=== PATIENT | male | born 1955 | race Caucasian/White ===

== ENCOUNTER → 2016-08-16 | Outpatient (CLI) | payer MEDICARE, MEDICAID | END | disposition home or self-care (01) | LOC: PCVCCLINIC 12:18 | PROVIDERS: ATTEND Internal Medicine | DX: I25.10 Atherosclerotic heart disease of native coronary artery without angina pectoris (principal); I48.0 Paroxysmal atrial fibrillation; E78.00 Pure hypercholesterolemia, unspecified; I65.23 Occlusion and stenosis of bilateral carotid arteries; E11.9 Type 2 diabetes mellitus without complications; G47.30 Sleep apnea, unspecified; I11.0 Hypertensive heart disease with heart failure; I50.9 Heart failure, unspecified; K21.9 Gastro-esophageal reflux disease without esophagitis; Z79.4 Long term (current) use of insulin; Z95.1 Presence of aortocoronary bypass graft; Z87.891 Personal history of nicotine dependence; Z88.0 Allergy status to penicillin; Z91.013 Allergy to seafood | CPT/HCPCS: 36415; 80061; 93005; G0463 ==

== ENCOUNTER → 2017-01-28 | Outpatient (CLI) | payer MEDICARE, MEDICAID | END | disposition home or self-care (01) | LOC: PCVCCLINIC 13:35 | PROVIDERS: ATTEND Internal Medicine | DX: I25.10 Atherosclerotic heart disease of native coronary artery without angina pectoris (principal); I25.5 Ischemic cardiomyopathy; I65.23 Occlusion and stenosis of bilateral carotid arteries; I10 Essential (primary) hypertension; E11.9 Type 2 diabetes mellitus without complications; E78.5 Hyperlipidemia, unspecified; G47.33 Obstructive sleep apnea (adult) (pediatric); I63.9 Cerebral infarction, unspecified; Z87.891 Personal history of nicotine dependence; Z79.899 Other long term (current) drug therapy; Z79.84 Long term (current) use of oral hypoglycemic drugs | CPT/HCPCS: 80061; 93005; G0463 ==

== ENCOUNTER → 2017-08-07 | Outpatient (CLI) | payer MEDICARE, MEDICAID | END | disposition home or self-care (01) | LOC: PCVCIMAG 08:43 | DX: I65.23 Occlusion and stenosis of bilateral carotid arteries (principal); I25.10 Atherosclerotic heart disease of native coronary artery without angina pectoris; I25.5 Ischemic cardiomyopathy; E78.5 Hyperlipidemia, unspecified; I10 Essential (primary) hypertension; G47.33 Obstructive sleep apnea (adult) (pediatric); I63.9 Cerebral infarction, unspecified; E11.9 Type 2 diabetes mellitus without complications; Z87.891 Personal history of nicotine dependence; Z79.899 Other long term (current) drug therapy; Z79.84 Long term (current) use of oral hypoglycemic drugs; Z79.4 Long term (current) use of insulin | CPT/HCPCS: 80061; 93005; 93880; G0463 ==

== ENCOUNTER → 2018-02-13 | Outpatient (CLI) | payer MEDICARE, MEDICAID | END | disposition home or self-care (01) | LOC: PCVCCLINIC 10:34 | PROVIDERS: ATTEND Internal Medicine | DX: I25.10 Atherosclerotic heart disease of native coronary artery without angina pectoris (principal); I25.5 Ischemic cardiomyopathy; E78.5 Hyperlipidemia, unspecified; I65.23 Occlusion and stenosis of bilateral carotid arteries; G47.33 Obstructive sleep apnea (adult) (pediatric); I63.9 Cerebral infarction, unspecified; E11.9 Type 2 diabetes mellitus without complications; I11.0 Hypertensive heart disease with heart failure; I50.9 Heart failure, unspecified; K21.9 Gastro-esophageal reflux disease without esophagitis; Z79.84 Long term (current) use of oral hypoglycemic drugs | CPT/HCPCS: 36415; 80061; 93005; G0463 ==

== ENCOUNTER → 2018-02-13 | Outpatient (CLI) | payer MEDICARE, MEDICAID | END | disposition home or self-care (01) | LOC: PCVCCLINIC 10:52 | PROVIDERS: ATTEND Internal Medicine | DX: I25.10 Atherosclerotic heart disease of native coronary artery without angina pectoris (principal); I25.5 Ischemic cardiomyopathy; E78.5 Hyperlipidemia, unspecified; I65.23 Occlusion and stenosis of bilateral carotid arteries; G47.33 Obstructive sleep apnea (adult) (pediatric); I63.9 Cerebral infarction, unspecified; E11.9 Type 2 diabetes mellitus without complications; I11.0 Hypertensive heart disease with heart failure; I50.9 Heart failure, unspecified; K21.9 Gastro-esophageal reflux disease without esophagitis; Z79.84 Long term (current) use of oral hypoglycemic drugs | CPT/HCPCS: 36415; 80061; 93005; G0463 ==

== ENCOUNTER → 2018-08-22 | Outpatient (CLI) | payer MEDICARE, MEDICAID ==
--- NOTE | 2018-08-22 09:52 | PCVCIMAG ---
APPROVED REPORT Indications Stenosis Risk Factors Hypertension: TIA/CVA History Hyperlipidemia Diabetes, CAD Doppler Spectral Velocity Analysis PSV / EDVPSV / EDV ECA (R) 270 / 31 cm/sECA (L) 146 / 22 cm/s dICA (R) 76 / 24 cm/sdICA (L) 84 / 14 cm/s Jimbo (R) 72 / 25 cm/smICA (L) 76 / 23 cm/s pICA (R) 102 / 27 cm/spICA (L) 73 / 19 cm/s Bulb (R) 96 / 23 cm/sBulb (L) 69 / 14 cm/s dCCA (R) 90 / 26 cm/sdCCA (L) 90 / 19 cm/s mCCA (R) 87 / 22 cm/smCCA (L) 94 / 24 cm/s Vert (R) 27 / 7 cm/sVert (L) 36 / 12 cm/s ICA/CCA 1.13ICA/CCA 0.93 Basic Measurements Blood Pressure: Pulses: Right Left RightLeft Brachial(Sitting) 130/38rrEb635/68mmHgTemporal Real Time B-Mode Imaging Vert. (R)AntegradeVert. (L)Antegrade Findings The right carotid bulb has moderate plaque. The right proximal internal carotid artery shows <40% stenosis. The right common carotid artery shows no significant stenosis. The right external carotid artery shows no significant stenosis. The left carotid bulb has moderate plaque. The left proximal internal carotid artery shows <40% stenosis. The left common carotid artery shows no significant stenosis. The left external carotid artery shows no significant stenosis. Conclusion 1. Right internal carotid artery stenosis (<40%) 2. Left internal carotid artery stenosis (<40%) 3. Antegrade vertebral flow
--- NOTE | 2018-08-22 09:59 | PCVCIMAG ---
APPROVED REPORT Study performed: 08/22/2018 08:34:16 EXAM: Comprehensive 2D, Doppler, and color-flow Echocardiogram Patient Location: Echo lab Status: routine BSA: 2.51 HR: 60 bpmBP: 140/68 mmHg Rhythm: NSR Other Information Study Quality: Adequate Risk Factors: Cardiac Risk Factors: HTN, DM Indications CAD ischemic cardiomyopathy, obesity 2D Dimensions IVSd: 10.85 (7-11mm)LVOT Diam: 22.17 (18-24mm) LVDd: 58.56 mm PWd: 10.72 (7-11mm) LVDs: 50.53 (25-40mm) Left Atrium: 52.64 (27-40mm) Aortic Root: 29.84 mm LV Single Plane 4CH: 47.33 % LV Single Plane 2CH: 49.22 % Biplane EF: 48.9 % Volumes Left Atrial Volume (Systole) Single Plane 4CH: 105.20 mLSingle Plane 2CH: 97.23 mL LA ESV Index: 41.00 mL/m2 Aortic Valve AoV Peak David.: 2.57 m/s AO Peak Gr.: 26.50 mmHgLVOT Max P.62 mmHg AO Mean Gr.: 13.40 mmHgLVOT Mean P.68 mmHg AO V2 Mean: 1.73 m/sLVOT Max V: 1.13 m/s AO V2 VTI: 59.96 cmLVOT Mean V: 0.76 m/s MATTHEW (VTI): 1.78 [id number] V1 VTI: 27.73 cm MATTHEW Vmax: 1.69 cm2 SV (LVOT): 106.97 mL Mitral Valve E/A Ratio: 1.6 MV Decel. Time: 269.57 ms MV E Max David.: 0.80 m/s MV A David.: 0.51 m/s IVRT: 83.04 ms Pulmonary Valve PV Peak David.: 1.25 m/sPV Peak Gr.: 6.25 mmHg Pulmonary Vein P Vein S: 0.31 m/sP Vein A: 0.27 m/s P Vein D: 0.49 m/sP Vein A Dur.: 141.9 msec P Vein S/D Ratio: 0.63 Tricuspid Valve TR Peak David.: 2.62 m/s TR Peak Gr.: 27.45 mmHg TV Vmax: 0.45 m/s Left Ventricle Left ventricle is borderline dilated. Basal-mid inferolater and basal inferior hypokinesis. There is normal left ventricular wall thickness. Left ventricular systolic function is mild to moderately decreased. Hypokinesis involving the base of the inferolateral and inferior morales. LVEF 45-50%. Grade II - pseudonormal filling dynamics. Right Ventricle The right ventricle is normal size. The right ventricular systolic function is normal. Atria The left atrium size is normal. The right atrium size is normal. Aortic Valve The aortic valve is mildly calcified, possibly bicuspid. No aortic regurgitation is present. There is mild valvular aortic stenosis. Calculated aortic valve area is 1.8 cm2 with maximum pressure gradient of 27 mmHg and mean pressure gradient of 13 mmHg. Mitral Valve The mitral valve is normal in structure. There is no mitral valve regurgitation noted. No evidence of mitral valve stenosis. Tricuspid Valve The tricuspid valve is normal in structure. Mild tricuspid regurgitation with PAP of 34 mmHg. Pulmonic Valve The pulmonary valve is normal in structure. There is no pulmonic valvular regurgitation. Great Vessels The aortic root is normal in size. IVC is normal in size and collapses >50% with inspiration. Pericardium There is no pericardial effusion. There is no pleural effusion. <Conclusion> Left ventricular systolic function is mild to moderately decreased. Hypokinesis involving the base of the inferolateral and inferior morales. LVEF 45-50%. Grade II - pseudonormal filling dynamics. The aortic valve is mildly calcified, possibly bicuspid. Mild stenosis, no insufficiency Calculated aortic valve area is 1.8 cm2 with maximum pressure gradient of 27 mmHg and mean pressure gradient of 13 mmHg. The mitral valve is normal in structure. No mitral valve regurgitation. Mild tricuspid regurgitation with pulmonary artery pressure of 34 mmHg. There is no pericardial effusion.
== END | disposition home or self-care (01) ==
LOC: PCVCIMAG 08:26
PROVIDERS: ATTEND Internal Medicine
DX: I65.23 Occlusion and stenosis of bilateral carotid arteries (principal); I07.1 Rheumatic tricuspid insufficiency; I48.0 Paroxysmal atrial fibrillation; I25.5 Ischemic cardiomyopathy; I25.10 Atherosclerotic heart disease of native coronary artery without angina pectoris; I10 Essential (primary) hypertension; E11.9 Type 2 diabetes mellitus without complications; Z87.891 Personal history of nicotine dependence
CPT/HCPCS: 36415; 80061; 93005; 93306; 93880; G0463